=== PATIENT | female | born 1995 | race African-American/Black ===

== ENCOUNTER 2018-02-12 11:54 | Emergency (ER) | payer SELFPAY ==
[~2018-02-12] VITALS: Ht 170.2 cm; Wt 60.0 kg
[~2018-02-12 11:54] MED LIST: BACT800T5 PO; CEPH500C3 PO; PERC5TAB12 PO
[2018-02-12 12:10] VITALS: BP 106/59; PULSE 66; RESP 18; TEMP 97.9; O2SAT 99
== END 2018-02-12 15:29 | disposition left against medical advice (07) ==
LOC: NED 11:54
DX: K08.89 Other specified disorders of teeth and supporting structures (principal)
CPT/HCPCS: 99281